=== PATIENT | female | born 1955 | race Caucasian/White ===

== ENCOUNTER 2017-01-26 09:45 | Day surgery (SDC) | payer OTHER ==
[2017-01-25] MEDS: Sodium Chloride 0.9% 10 ML FLUSH Syringe PICC PRN (10:38)
[2017-01-26] MEDS ORDERED: Sodium Chloride 0.9% 1000 ML 1,000 ML ONE (09:53)
[2017-01-26] MEDS ORDERED: Sodium Chloride 0.9% 1000 ML 1,000 ML IV SCH (10:00)
[2017-01-26] MEDS: Sodium Chloride 0.9% 10 ML FLUSH Syringe PICC PRN ×2 (16:20→16:21)
[2017-01-26 16:46] VITALS: BP 139/77; PULSE 86; O2SAT 98
== END 2017-01-26 16:30 | disposition home or self-care (01) ==
LOC: INFUSION 09:45
PROVIDERS: ATTEND Family Medicine
DX: D50.9 Iron deficiency anemia, unspecified (principal)
CPT/HCPCS: 36415; 36430; 36591; 86850; 86900; 86901; 86922; 96360; 96361; 96365; 96366; J1642; P9016